=== PATIENT | male | born 1975 | race Caucasian/White ===

== ENCOUNTER → 2020-10-22 | Outpatient (CLI) | payer OTHER ==
[~2020-10-22] MED LIST: OMNIPAQUE 350 MG/ML, 100ML BOTTLE ONE
== END | disposition home or self-care (01) ==
LOC: RAD 14:54
PROVIDERS: ATTEND Physician Assistant
DX: R10.84 Generalized abdominal pain (principal); K92.1 Melena; M51.37 Other intervertebral disc degeneration, lumbosacral region
CPT/HCPCS: 74177; Q9967

== ENCOUNTER 2020-12-31 09:01 | Emergency (ER) | payer OTHER ==
[~2020-12-31] VITALS: Ht 175.3 cm; Wt 77.8 kg
--- NOTE | 2020-12-31 09:44 | NUR ---
PT TO ROOM 38 W/ C/O NUMBNESS/TINGLING TO BUE AND CHEST TIGHTNESS MONDAY NIGHT LASTING 30 MIN AT THAT TIME. NO SX OF CP SINCE THEN BUT N/T REMAIN. PT ALSO C/O N/D X 34 DAYS. PT STATES HX COLITIS AND UNSURE IF PT HAS GALLBLADDER ISSUES. PT STATES HE IS BEING FOLLOWED BY GI FOR THIS ISSUE. PT RESTING ON GURNEY. NADN. MONITORS APPLIED. VSS. PIV INITIATED.
[2020-12-31 09:52] LABS: BASOPHILS % (AUTO) 1 % (0-1); EOSINOPHILS % (AUTO) 1 % (1-7); LYMPHOCYTES % (AUTO) 29 % (22-44); MEAN CORPUSCULAR HEMOGLOBIN 31.6 pg (27.5-34.5); MEAN CORPUSCULAR HGB CONC 34.1 g/dL (33.2-36.2); MEAN PLATELET VOLUME 7.5 fL (7.4-10.4); MONOCYTES % (AUTO) 6 % (2-9); NEUTROPHILS % (AUTO) 62 % (42-75); PLATELET COUNT 316 x10^3/uL (130-400); RED BLOOD COUNT 4.64 x10^6/uL (4.38-5.82)
[2020-12-31 09:56] LABS: MD NO
[2020-12-31 10:03] LABS: ANION GAP 4 mmol/L (5-15); CALCIUM 8.9 mg/dL (8.5-10.1); CHLORIDE 110 mmol/L (98-107)
[2020-12-31 10:09] LABS: ALANINE AMINOTRANSFERASE 29 U/L (12-78); ALKALINE PHOSPHATASE 67 U/L (45-117); CREATININE 1.07 mg/dL (0.7-1.3); TOTAL PROTEIN 6.7 g/dL (6.4-8.2); TROPONIN I < 0.015 ng/mL (0.000-0.045)
[2020-12-31 10:10] VITALS: BP 113/60
--- NOTE | 2020-12-31 10:10 | NUR ---
PT RESTING ON GURNEY. PARVEENN. VSS. AWARE OF NEED FOR UA SAMPLE. URINAL LEFT AT BEDSIDE.
[2020-12-31 10:57] LABS: MICROSCOPIC AUTO
--- NOTE | 2020-12-31 11:14 | NUR ---
Patient and spouse given discharge instructions and prescription and they have confirmed that they understand the instructions, all questions answered. Copy of labs and imaging provided to patient per request for [facility]. Patient stable and ambulatory with steady gait from ED with significant other.
== END 2020-12-31 11:15 | disposition home or self-care (01) ==
LOC: ED 09:40
DX: R07.89 Other chest pain (principal); R11.2 Nausea with vomiting, unspecified; R19.7 Diarrhea, unspecified; R10.9 Unspecified abdominal pain; R20.2 Paresthesia of skin
CPT/HCPCS: 36415; 71045; 76700; 80053; 81001; 83690; 84484; 85025; 93005; 99285

== ENCOUNTER → 2021-01-01 | Outpatient (CLI) | payer OTHER | END | disposition home or self-care (01) | LOC: RAD 12:32 | PROVIDERS: ATTEND Internal Medicine Gastroenterology | DX: R19.7 Diarrhea, unspecified (principal); R10.9 Unspecified abdominal pain | CPT/HCPCS: 78227; A9537; J2805 ==